=== PATIENT | female | born 1970 | race Two or more races ===

== ENCOUNTER 2025-02-16 05:16 | Emergency (ER) | payer MEDICAID, SELFPAY ==
[2025-02-16 05:24] VITALS: BP 136/87; PULSE 73; RESP 17; TEMP 36.6; O2SAT 95
--- NOTE | 2025-02-16 05:38 | XR_ITS ---
Examination: Abdomen sonogram, Limited Date and time of exam: February 16, 2025, 0548 hours INDICATIONS: Right upper abdominal pain beginning 12:00 AM this morning Technique: Real-time monet scale transabdominal sonographic images of the upper abdomen obtained. Findings: Multiple gallstones Normal gallbladder wall 0.2 cm Common bile duct 0.3 cm Pancreatic head 1.9 cm Liver 19.4 cm fatty infiltration no focal liver lesions Normal hepatopedal portal venous flow Patent IVC IMPRESSION: Cholelithiasis, negative for cholecystitis Moderate hepatomegaly
--- NOTE | 2025-02-16 05:39 | PD.EDRME ---
Rapid Medical Screening Exam [facility] Arrival date/time: 02/16/25 05:16 54F with history of DM presents to ED with 2 days of N/V, upper ab pain, and non-bloody diarrhea. Chief Complaint: Abdominal Pain Vital signs: Vital Signs Temperature 97.8 F 02/16/25 05:24 Pulse Rate 73 02/16/25 05:24 Respiratory Rate 17 02/16/25 05:24 Blood Pressure 136/87 H 02/16/25 05:24 Pulse Oximetry (%) 95 02/16/25 05:24 Oxygen Delivery Method Room Air 02/16/25 05:24
[2025-02-16 06:07] LABS: Collection Type, Urine Clean Catch; RBC,Urine 0 /hpf (0-3); WBC,Urine 0 /hpf (0-5)
[2025-02-16 06:09] VITALS: BMI 32.5
--- NOTE | 2025-02-16 06:24 | PRELIM_ITS ---
Gallbladder ultrasound. February 16, 2025 0548 hours Clinical history: RUQ/epigastric pain Technique: Grayscale and color flow images of the abdomen are provided. Comparison: No prior study is available for comparison. Findings: The liver is enlarged, measuring 19.4 cm, and demonstrates increased echogenicity with a heterogeneous texture. No focal hepatic masses or cysts are identified. No intrahepatic biliary ductal dilatation is demonstrated. The gallbladder contains multiple echogenic foci with posterior acoustic shadowing consistent with calculi. The gallbladder wall measures 0.2 cm, which is within normal limits. No pericholecystic fluid is seen. The common bile duct measures 0.3 cm, which is within normal limits. The pancreas is visualised with a head dimension of 1.9 cm and shows no focal mass. Hepatopetal flow is demonstrated in the portal vein. The IVC is patent. No free fluid is seen. Impression: Cholelithiasis without evidence of acute cholecystitis. Hepatomegaly with heterogeneous and hyperechoic echotexture, suggestive of hepatic parenchymal disease (such as steatosis or other hepatocellular pathology). Recommend correlation with liver function tests and clinical history. Report Electronically Signed By: Trav Major 02/16/2025 6:23:53 AM [EST]
[2025-02-16] MEDS: ONDANSETRON INJ 2 MG/ML INJ 2 ML 4 MG IV (06:28)
[2025-02-16] MEDS: SODIUM CHLORIDE 0.9% 1000 ML 1,000 ML 999 ML IV (06:29)
[2025-02-16] MEDS: MORPHINE SULF INJ 10 MG/ML VIAL 5 MG IVP (06:29)
[2025-02-16 06:31] LABS: Bacteria,Urine Rare; Bilirubin,Urine Negative (Negative); Blood,Urine Negative (Negative); Clarity,Urine Clear (Clear/Hazy); Color,Urine Lt-Yellow (Lt Yel-Yel); Culture Indicated,Urine Not Indicated; Glucose, Urine Negative (Negative); Ketones,Urine Negative (Negative); Leukocyte Esterase,Urine Negative (Negative); Nitrite,Urine Negative (Negative); PH,Urine 6.0 (5.0-7.0); Protein,Urine Negative (Neg - Trace); Specific Gravity,Urine 1.023 (1.001-1.035); Squamous Epithelial Cell,Urine 1 /hpf (0-5); Urobilinogen,Urine Negative mg/dL (0.0-1.0)
[2025-02-16 06:33] LABS: HCG Qualitative,Urine Negative
[2025-02-16 06:39] VITALS: BP 134/88; PULSE 72; RESP 17; TEMP 36.6; O2SAT 95
[2025-02-16 06:47] LABS: Amphetamine/Methamp Scrn,U Negative (Negative); Barbiturate Screen,Urine Negative (Negative); Benzodiazepines Screen,Urine Negative (Negative); Benzoylecgonine Screen, Ur Negative (Negative); Fentanyl Screen,Urine Negative (Negative); Opiate Screen,Urine Negative (Negative); THC Screen,Urine Negative (Negative)
[2025-02-16 07:14] LABS: Basophils # (Auto) 0.0 Thou/mm3 (0.0-0.2); Basophils % (Auto) 0 % (0-2.5); Eosinophils # (Auto) 0.1 Thou/mm3 (0.0-0.5); Eosinophils % (Auto) 0 % (0-10); Hematocrit 40.1 % (36.0-46.0); Hemoglobin 13.6 g/dL (12.0-16.0); Immature Granulocytes Auto 0.07 Thou/mm3 (0.00-0.00); Lymphocytes # (Auto) 1.0 Thou/mm3 (1.0-4.8); Lymphocytes % (Auto) 8 % (10-50); Mean Corpuscular HGB Conc 33.9 g/dl (31.0-37.0); Mean Corpuscular Hemoglobin 30.6 pg (25.0-35.0); Mean Corpuscular Volume 90 fL (80-100); Monocytes # (Auto) 0.6 Thou/mm3 (0.0-0.8); Monocytes % (Auto) 4 % (0-12); Neutrophils # (Auto) 11.7 Thou/mm3 (1.8-7.7); Neutrophils % (Auto) 87 % (37-80); Nucleated Red Blood Cell # 0.00 Thou/mm3 (0.00-0.00); Nucleated Red Blood Cell % 0 /100 WBC (0); Platelet Count 248 Thou/mm3 (140-440); RDW Standard Deviation 45.3 fL (36.4-46.3); Red Blood Count 4.45 Miln/mm3 (4.00-5.20); White Blood Count 13.5 Thou/mm3 (3.6-11.0)
--- NOTE | 2025-02-16 07:14 | PD.EDABDPN ---
ED Abdominal Pain RME/HPI General Chief Complaint: Abdominal Pain Stated complaint: N/V/ABD PAIN/ GARCIA/CHILLS Time seen by provider: 02/16/25 06:27 Arrival date/time: 02/16/25 05:16 Limitations: no limitations RME / HPI RME / HPI narrative: 02/16/25 05:16 54F with history of DM presents to ED with 2 days of N/V, upper ab pain, and non-bloody diarrhea. DR. WILSON MAIN ED EVALUATION: 54-year-old female with past medical history of type 2 diabetes mellitus, hypertension, hypercholesterolemia, gallstones, and prior section presents with two weeks of abdominal pain, headache, nausea, vomiting, and chills. She denies dysuria, cough, congestion, or recent illness. She is accompanied by her daughter. Social history is negative for tobacco, alcohol, or drug use. Related Data Allergies Allergy/AdvReac Type Severity Reaction Status Date / Time NKA* Allergy Uncoded 03/11/12 05:23 Review of Systems Review of Systems Systems Reviewed: All systems reviewed, normal except as documented Past Medical History Past Medical History CARDIAC: Positive Hypercholesterolemia and Hypertension GASTROINTESTINAL: Positive Gall Bladder Disease ENDOCRINE: Positive Diabetes Mellitus Type 2 Social History SMOKING STATUS: Never smoker SUBSTANCE USE: does not use ALCOHOL: Never ED Exam General Limitations: Present no limitations General appearance: Present alert and in distress (looks uncomfortable and acutely ill) Head Head exam: Present atraumatic, normocephalic and normal inspection Eye Eye exam: Present normal appearance, PERRL and EOMI ENT ENT exam: Present normal exam, normal oropharynx and mucous membranes moist Neck Neck exam: Present normal inspection, full ROM and trachea midline Chest Chest inspection: Present normal inspection and symmetric chest wall rise Respiratory Respiratory exam: Present normal lung sounds bilaterally Cardiovascular Cardiovascular exam: Present regular rate, normal rhythm and normal heart sounds Abdominal Exam Abdominal exam: Present normal bowel sounds Abdominal tenderness: Present RUQ and epigastrium Extremities Exam Extremities exam: Present normal inspection and full ROM Back Exam Back exam: Present normal inspection and full ROM Neurological Exam Neurological exam: Present alert, oriented X3 and CN II-XII intact Psychiatric Psychiatric exam: Present normal affect and normal mood Skin Skin exam: Present warm, dry, intact and normal color Course Quality Measures none Orders Category Date Time Status Bedside COVID-19 Antigen Test NOW Care 02/16/25 05:31 Completed Bedside Influenza A&B Antigen Test NOW Care 02/16/25 05:[address] Screening NOW Care 02/16/25 08:25 Completed EKG (ED ONLY) *Do not use* NOW Care 02/16/25 09:08 Completed Insert IV NOW Care 02/16/25 05:[address] abdomen pelvis w con Stat Exams 02/16/25 08:25 Completed EKG (ED Only) Stat Exams 02/16/25 09:08 Draft US gall bladder Stat Exams 02/16/25 05:38 Completed CBC Stat Lab 02/16/25 06:59 Completed CMP [Comprehensive Metabolic Panel] Stat Lab 02/16/25 06:59 Completed Drug Screen,Urine Stat Lab 02/16/25 06:03 Completed HCG Qualitative,Urine Stat Lab 02/16/25 06:03 Completed Lactic Acid [Lactate (Lactic Acid)] Stat Lab 02/16/25 08:37 Completed Lactic Acid, 3 HR Stat Lab 02/16/25 11:57 Completed Lipase Stat Lab 02/16/25 06:59 Completed Troponin I Stat Lab 02/16/25 08:37 Completed Urinalysis, C/S if Indicated Stat Lab 02/16/25 06:03 Completed Ketorolac Inj [Toradol Inj] Med 02/16/25 07:17 Discontinued 15 mg IVP X1 ONE Lidocaine 2% Viscous [Xylocaine 2% Viscous] Med 02/16/25 08:25 Discontinued 15 ml PO X1 ONE Morphine Inj Med 02/16/25 05:38 Discontinued 5 mg IVP X1 ONE Ondansetron Inj [Zofran Inj] Med 02/16/25 05:38 Discontinued 4 mg IV X1 ONE Ringers Lactated 1000 ml [Lactated Ringers] 1,000 ml Med 02/16/25 10:53 Discontinued IV 999 mls/hr Sodium Chloride 0.9% 1000 ml [Ns] 1,000 ml Med 02/16/25 05:38 Discontinued IV 999 mls/hr mg Hyd/Al Hyd/Flex Susp [Maalox Susp] Med 02/16/25 08:25 Discontinued 30 ml PO X1 ONE Vital Signs Vital signs: Vital Signs Temperature 97.8 F 02/16/25 05:24 Pulse Rate 73 02/16/25 05:24 Respiratory Rate 17 02/16/25 05:24 Blood Pressure 136/87 H 02/16/25 05:24 Pulse Oximetry (%) 95 02/16/25 05:24 Oxygen Delivery Method Room Air 02/16/25 05:24 Abdominal Pain MDM MDM Narrative MDM Narrative:: I, Eileen Kaminski am scribing for and in the presence of Dr. Wilson. Patient is a 54-year-old female seen and examined concern for abdominal pain. Vital signs and exam as listed. Ordered labs, right upper quadrant ultrasound as well as pelvic CT as well as EKG. Labs with evidence of leukocytosis, 13.5, left shift of 87%. Patient hemoglobin 13.6, no significant acute electrolyte abnormalities. LFTs normal troponin not elevated. Urinalysis without evidence of infection. Drug screen negative. Right upper quadrant ultrasound with evidence of cholelithiasis, no evidence of cholecystitis. CT with evidence of possible enteritis. Less likely bowel obstruction given patient is having bowel movements Patient data External records reviewed:: [facility] previous records Clinical information provided by:: patient and family Social determinants that could affect healthcare access:: none Patient has the following chronic illnesses:: Past medical history of type 2 diabetes mellitus, hypertension, hypercholesterolemia, gallstones, and prior section. Social history is negative for tobacco, alcohol, or drug use. How is presenting disease/condition affected by chronic disease/condition?: exacerbated by Evaluation data The following diagnostics were reviewed and interpreted by me:: lab results and radiology exam(s) Lab and/or radiology exams considered but not ordered:: none Interpretation Summary: Procedure(s): US gall bladder Accession Number(s): [id number] cc: Jai Ma MD; Solitario Michelle MD; Saqib Garcia PA-C~ Examination: Abdomen sonogram, Limited Date and time of exam: February 16, 2025, 0548 hours INDICATIONS: Right upper abdominal pain beginning 12:00 AM this morning Technique: Real-time monet scale transabdominal sonographic images of the upper abdomen obtained. Findings: Multiple gallstones Normal gallbladder wall 0.2 cm Common bile duct 0.3 cm Pancreatic head 1.9 cm Liver 19.4 cm fatty infiltration no focal liver lesions Normal hepatopedal portal venous flow Patent IVC IMPRESSION: Cholelithiasis, negative for cholecystitis Moderate hepatomegaly Dictated By: Solitario Michelle MD Procedure(s): CT abdomen pelvis w con Accession Number(s): [id number] cc: Jai Ma MD; Solitario Michelle MD; France Wilson MD~ Examination: CT abdomen with intravenous contrast CT pelvis with intravenous contrast 2-D coronal reconstructions 2-D sagittal reconstructions Date and time of exam:February 16, 2025, 1017 hours INDICATIONS: Onset upper abdominal pain beginning this morning.. CTDI: vol (mGy) 9.69 DLP: (mGycm) 512 Technique: Multiple axial sections of the abdomen and pelvis have been obtained. 64 slice high-resolution scanner used. 3 mm axial sections have been obtained, post intravenous injection 60 cc [id number] 2-D sagittal, coronal reconstructions obtained. Low dose protocols were performed. One or more of the following dose reduction techniques were used; automated exposure control, adjustment of the mA and/or KV according to patient size, use of iterative reconstruction technique. Findings: No focal liver or splenic lesions Gallstones No pancreatic or adrenal mass No renal or ureteral calculi, no hydronephrosis Multiple fluid distended small bowel loops Normal appendix No diverticulitis Intact urinary bladder Atrophic uterus Advanced disc narrowing T12-L1 IMPRESSION: Multiple fluid distended small bowel loops, consider ileus, enteritis such as Crohn's disease If early small bowel obstruction is a clinical consideration recommend 3 way abdominal series follow-up Dictated By: Solitario Michelle MD Medications / Prescriptions Medications or Prescriptions considered but not ordered:: none Medication administrations:: Medication Administration History Discontinued Medications Al Hydrox/Mg Hydrox/Simethicone (Mg Hyd/Al Hyd/Flex (Maalox Reg) Susp 30 Ml Udc) 30 ml PO X1 ONE Stop: 02/16/25 08:26 Last Admin: 02/16/25 08:59 Dose: 30 ml Documented By: VICENTE Sodium Chloride (Ns) 1,000 mls @ 999 mls/hr IV .Q1H1M ONE Stop: 02/16/25 06:38 Last Infusion: 02/16/25 07:32 Dose: Infused Documented By: Admin: 02/16/25 06:29 Dose: 999 mls/hr Documented By: SAVANNAH Lactated Ringer's (Lactated Ringers) 1,000 mls @ 999 mls/hr IV .Q1H1M ONE Stop: 02/16/25 11:53 Last Infusion: 02/16/25 12:14 Dose: Infused Documented By: Admin: 02/16/25 11:07 Dose: 999 mls/hr Documented By: VICENTE Ketorolac Tromethamine (Ketorolac Inj 30 Mg/Ml Vial) 15 mg IVP X1 ONE Stop: 02/16/25 07:18 Last Admin: 02/16/25 07:24 Dose: 15 mg Documented By: VICENTE Lidocaine HCl (Lidocaine Viscous 2% 15 Ml Udc) 15 ml PO X1 ONE Stop: 02/16/25 08:26 Last Admin: 02/16/25 08:59 Dose: 15 ml Documented By: VICENTE Morphine Sulfate (Morphine Sulf Inj 10 Mg/Ml Vial) 5 mg IVP X1 ONE Stop: 02/16/25 05:39 Last Admin: 02/16/25 06:29 Dose: 5 mg Documented By: SAVANNAH Ondansetron HCl (Ondansetron Inj 2 Mg/Ml Inj 2 Ml) 4 mg IV X1 ONE; Protocol Stop: 02/16/25 05:39 Last Admin: 02/16/25 06:28 Dose: 4 mg Documented By: SAVANNAH see above Consultations Consultation(s) initiated? (list below): No Diagnosis Differential diagnosis abdominal pain: abdominal pain and other (Cholecystitis, viral gastroenteritis, and diabetic gastroparesis.) Most likely diagnosis given after review of the tests above:: Diarrhea Cholelithiasis Admission Indicated Admission indicated?: not indicated Admission Request Was there a request for admission?: No Disposition Plan Disposition Plan: Discharge Discharge Attestation Discharge Attestation: The patient and all family members were given an opportunity to ask questions and understood the discharge instructions. Discharge instructions specifically effects, indications for sooner follow up or return to the emergency department, and the expected course of current diagnosis. Patient condition: Stable Critical Care Time Critical Care Time Critical Care Time: Yes Total Critical Care Time (min.): 40 Attestation: The high probability of sudden, clinically significant deterioration in the patient?s condition required the highest level of my preparedness to intervene urgently. The services I provided to this patient were to treat and/or prevent clinically significant deterioration. Services included the following: chart data review, reviewing nursing notes and/or old charts, documentation time, ada accommodation consultant collaboration regarding findings and treatment options, medication orders and management, direct patient care, vital sign assessments and ordering, interpreting and reviewing diagnostic studies and lab tests. Aggregate critical care time includes only time during which I was engaged in work directly related to the patient?s care, as described above, whether at bedside or elsewhere in the Emergency Department. It did not include time spent performing other reported procedures or the services of residents, students, nurses or physician assistants. Discharge Plan Plan Patient Disposition: HOME (Self Care) Prescriptions/Referrals Referrals: Jai Ma MD [Primary Care Provider] - In 1 week Problem List Clinical Impression: Diarrhea, Cholelithiasis Patient/Caregiver Discharge Instructions Education Materials: ED Diarrhea, Unknown Cause, ED Gallstones with Biliary Colic Additional Instructions: Por favor pedir mona con un cirujano para la evaluacion y manejo de patrizia piedras en la vesicula. Por favor hidratarse jomar en casa. Regresar de inmediato si tiene empeoramiento de sintomas o nuevos sintomas de preocupacion Print Language: Citizen Of [place] Stand Alone Forms: Marielle Award Info., Patient Portal Info Letter
--- NOTE | 2025-02-16 07:14 | PD.EDABDPN ---
ED Abdominal Pain RME/HPI General Chief Complaint: Abdominal Pain Stated complaint: N/V/ABD PAIN/ GARCIA/CHILLS Time seen by provider: 02/16/25 06:27 Arrival date/time: 02/16/25 05:16 Source: patient Limitations: no limitations and language barrier (Use certified certified court/medical interpreter) RME / HPI RME / HPI narrative: 02/16/25 05:16 54F with history of DM presents to ED with 2 days of N/V, upper ab pain, and non-bloody diarrhea. Denies fevers however does endorse chills. Denies drugs alcohol smoking recent travel sick contacts or any dietary changes. Nobody also sick at home. Patient has a history of 2 C-sections, no other surgeries to her belly. No allergies to medications Related Data Allergies Allergy/AdvReac Type Severity Reaction Status Date / Time NKA* Allergy Uncoded 03/11/12 05:23 ED Exam General Limitations: Present no limitations and language barrier (Use certified certified court/medical interpreter) General appearance: Present alert Head Head exam: Present atraumatic Eye Eye exam: Present normal appearance ENT ENT exam: Present normal exam Neck Neck exam: Present normal inspection Chest Chest inspection: Present normal inspection Respiratory Respiratory exam: Present normal lung sounds bilaterally Cardiovascular Cardiovascular exam: Present normal rhythm Abdominal Exam Abdominal exam: Present soft and tenderness (Tenderness palpation in the right upper quadrant, no rebound or guarding); Absent distention Neurological Exam Neurological exam: Present alert and oriented X3 Psychiatric Psychiatric exam: Present normal affect Skin Skin exam: Present warm and dry Course Quality Measures none Orders Category Date Time Status Bedside COVID-19 Antigen Test NOW Care 02/16/25 05:31 Active Bedside Influenza A&B Antigen Test NOW Care 02/16/25 05:[address] Screening NOW Care 02/16/25 08:25 Active EKG (ED ONLY) *Do not use* NOW Care 02/16/25 09:08 Completed Insert IV NOW Care 02/16/25 05:[address] abdomen pelvis w con Stat Exams 02/16/25 08:25 Completed EKG (ED Only) Stat Exams 02/16/25 09:08 Draft US gall bladder Stat Exams 02/16/25 05:38 Completed CBC Stat Lab 02/16/25 06:59 Completed CMP [Comprehensive Metabolic Panel] Stat Lab 02/16/25 06:59 Completed Drug Screen,Urine Stat Lab 02/16/25 06:03 Completed HCG Qualitative,Urine Stat Lab 02/16/25 06:03 Completed Lactic Acid [Lactate (Lactic Acid)] Stat Lab 02/16/25 08:37 Completed Lactic Acid, 3 HR Stat Lab 02/16/25 11:57 Completed Lipase Stat Lab 02/16/25 06:59 Completed Troponin I Stat Lab 02/16/25 08:37 Completed Urinalysis, C/S if Indicated Stat Lab 02/16/25 06:03 Completed Ketorolac Inj [Toradol Inj] Med 02/16/25 07:17 Discontinued 15 mg IVP X1 ONE Lidocaine 2% Viscous [Xylocaine 2% Viscous] Med 02/16/25 08:25 Discontinued 15 ml PO X1 ONE Morphine Inj Med 02/16/25 05:38 Discontinued 5 mg IVP X1 ONE Ondansetron Inj [Zofran Inj] Med 02/16/25 05:38 Discontinued 4 mg IV X1 ONE Ringers Lactated 1000 ml [Lactated Ringers] 1,000 ml Med 02/16/25 10:53 Discontinued IV 999 mls/hr Sodium Chloride 0.9% 1000 ml [Ns] 1,000 ml Med 02/16/25 05:38 Discontinued IV 999 mls/hr mg Hyd/Al Hyd/Flex Susp [Maalox Susp] Med 02/16/25 08:25 Discontinued 30 ml PO X1 ONE Vital Signs Vital signs: Vital Signs Temperature 97.8 F 02/16/25 05:24 Pulse Rate 73 02/16/25 05:24 Respiratory Rate 17 02/16/25 05:24 Blood Pressure 136/87 H 02/16/25 05:24 Pulse Oximetry (%) 95 02/16/25 05:24 Oxygen Delivery Method Room Air 02/16/25 05:24 Abdominal Pain MDM MDM Narrative MDM Narrative:: Patient is a 54-year-old female is in Emergency Department concerns for epigastric pain. Vital signs and exam as listed. Concern for cholelithiasis cholecystitis pancreatitis among others. Ordered labs, right upper quadrant ultrasound medications for symptom relief. Patient did not present septic. Labs with evidence of leukocytosis 13.5, left shift of 87%. No significant electrolyte abnormalities, no transaminitis urinalysis without evidence of infection drug screen negative right upper quadrant ultrasound with evidence of multiple gallstones, normal gallbladder wall, normal common bile duct, patient does have fatty liver, otherwise no other abnormalities. On reevaluation patient hemodynamically stable, not in distress however is concerned because her abdominal pain only mildly gets better and then she gets nauseous again. Given this ordered lactic acid, CT abdomen and pelvis as well as a GI cocktail. Initial lactic acid slightly elevated 2.6, down trended to normal following fluid resuscitation. EKG without evidence of ischemia arrhythmia troponin not elevated. CT abdomen pelvis with multiple fluid distended small bowel loops, given patient's clinical history findings are most consistent with enteritis. Patient is having bowel movements. Nonbloody. On reassessment, patient symptoms have completely resolved she is feeling better, abdomen soft nondistended nontender, will discharge to home with close return precautions follow-up with her primary care doctor as well as recommendation that she sees a general surgeon for management of her gallstone pain. Patient states that she has had symptoms on and off for years, had not had recurrence of symptoms for many years. Patient in agreement with treatment plan will follow-up with her primary care doctor as an outpatient. Patient data External records reviewed:: [facility] previous records Clinical information provided by:: patient Social determinants that could affect healthcare access:: none (Language, certified certified court/medical interpreter used) Patient has the following chronic illnesses:: Diabetes How is presenting disease/condition affected by chronic disease/condition?: uneffected by Evaluation data The following diagnostics were reviewed and interpreted by me:: lab results, radiology exam(s) and EKG tracing(s) Lab and/or radiology exams considered but not ordered:: None Interpretation Summary: See MDM Medications / Prescriptions Medications or Prescriptions considered but not ordered:: None Medication administrations:: Medication Administration History Discontinued Medications Al Hydrox/Mg Hydrox/Simethicone (Mg Hyd/Al Hyd/Flex (Maalox Reg) Susp 30 Ml Udc) 30 ml PO X1 ONE Stop: 02/16/25 08:26 Last Admin: 02/16/25 08:59 Dose: 30 ml Documented By: VICENTE Sodium Chloride (Ns) 1,000 mls @ 999 mls/hr IV .Q1H1M ONE Stop: 02/16/25 06:38 Last Infusion: 02/16/25 07:32 Dose: Infused Documented By: Admin: 02/16/25 06:29 Dose: 999 mls/hr Documented By: SAVANNAH Lactated Ringer's (Lactated Ringers) 1,000 mls @ 999 mls/hr IV .Q1H1M ONE Stop: 02/16/25 11:53 Last Infusion: 02/16/25 12:14 Dose: Infused Documented By: Admin: 02/16/25 11:07 Dose: 999 mls/hr Documented By: VICENTE Ketorolac Tromethamine (Ketorolac Inj 30 Mg/Ml Vial) 15 mg IVP X1 ONE Stop: 02/16/25 07:18 Last Admin: 02/16/25 07:24 Dose: 15 mg Documented By: VL Lidocaine HCl (Lidocaine Viscous 2% 15 Ml Udc) 15 ml PO X1 ONE Stop: 02/16/25 08:26 Last Admin: 02/16/25 08:59 Dose: 15 ml Documented By: VICENTE Morphine Sulfate (Morphine Sulf Inj 10 Mg/Ml Vial) 5 mg IVP X1 ONE Stop: 02/16/25 05:39 Last Admin: 02/16/25 06:29 Dose: 5 mg Documented By: SAVANNAH Ondansetron HCl (Ondansetron Inj 2 Mg/Ml Inj 2 Ml) 4 mg IV X1 ONE; Protocol Stop: 02/16/25 05:39 Last Admin: 02/16/25 06:28 Dose: 4 mg Documented By: SAVANNAH See above Consultations Consultation(s) initiated? (list below): No Diagnosis Differential diagnosis abdominal pain: abdominal pain, constipation, diverticulitis and gastroenteritis Most likely diagnosis given after review of the tests above:: symptomatic cholelithiasis, diarrhea Admission Indicated Admission indicated?: not indicated Admission Request Was there a request for admission?: No Disposition Plan Disposition Plan: Discharge Discharge Attestation Discharge Attestation: The patient and all family members were given an opportunity to ask questions and understood the discharge instructions. Discharge instructions specifically effects, indications for sooner follow up or return to the emergency department, and the expected course of current diagnosis. Patient condition: Stable Discharge Plan Plan Patient Disposition: HOME (Self Care) Prescriptions/Referrals Referrals: Jai Ma MD [Primary Care Provider] - In 1 week Problem List Clinical Impression: Diarrhea, Cholelithiasis Patient/Caregiver Discharge Instructions Education Materials: ED Diarrhea, Unknown Cause, ED Gallstones with Biliary Colic Additional Instructions: Por favor pedir mona con un cirujano para la evaluacion y manejo de patrizia piedras en la vesicula. Por favor hidratarse jomar en casa. Regresar de inmediato si tiene empeoramiento de sintomas o nuevos sintomas de preocupacion Print Language: [place] Stand Alone Forms: Marielle Award Info., Patient Portal Info Letter
[2025-02-16 07:16] VITALS: BP 144/89; PULSE 73; RESP 18; TEMP 36.8; O2SAT 99
[2025-02-16] MEDS: KETOROLAC INJ 30 MG/ML VIAL 15 MG IVP (07:24)
[2025-02-16 07:31] LABS: Alanine Aminotransferase 23 U/L (10-49); Albumin, Serum 4.6 gm/dL (3.5-5.0); Albumin/Globulin Ratio 1.8 (1.2-2.2); Alkaline Phosphatase 102 U/L (46-116); Anion Gap 9 (7-16); Aspartate Amino Transferase 19 U/L (0-34); BUN/Creatinine Ratio 26 Ratio (12-20); Bilirubin,Total 0.7 mg/dL (0.3-1.2); Blood Urea Nitrogen 21 mg/dL (9-23); Calcium 9.0 mg/dL (8.3-10.6); Calcium (Corrected) 9.0 mg/dL (8.5-10.1); Carbon Dioxide 29.7 mMol/L (20.0-31.0); Chloride 105 mMol/L (98-107); Creatinine (Component) 0.8 mg/dL (0.6-1.3); Estimated Creatinine Clearance 80.1 mL/min (>60); Globulin 2.6 gm/dL (2.3-3.5); Glucose 133 mg/dL (74-106); Lipase 35 U/L (12-53); Osmolality,Calculated 291 (275-295); Potassium 3.8 mMol/L (3.4-5.1); Sodium 144 mMol/L (136-145); Total Protein 7.2 gm/dL (5.7-8.2); eGFR > 60 See Note
--- NOTE | 2025-02-16 08:25 | XR_ITS ---
Examination: CT abdomen with intravenous contrast CT pelvis with intravenous contrast 2-D coronal reconstructions 2-D sagittal reconstructions Date and time of exam:February 16, 2025, 1017 hours INDICATIONS: Onset upper abdominal pain beginning this morning.. CTDI: vol (mGy) 9.69 DLP: (mGycm) 512 Technique: Multiple axial sections of the abdomen and pelvis have been obtained. 64 slice high-resolution scanner used. 3 mm axial sections have been obtained, post intravenous injection 60 cc [id number] 2-D sagittal, coronal reconstructions obtained. Low dose protocols were performed. One or more of the following dose reduction techniques were used; automated exposure control, adjustment of the mA and/or KV according to patient size, use of iterative reconstruction technique. Findings: No focal liver or splenic lesions Gallstones No pancreatic or adrenal mass No renal or ureteral calculi, no hydronephrosis Multiple fluid distended small bowel loops Normal appendix No diverticulitis Intact urinary bladder Atrophic uterus Advanced disc narrowing T12-L1 IMPRESSION: Multiple fluid distended small bowel loops, consider ileus, enteritis such as Crohn's disease If early small bowel obstruction is a clinical consideration recommend 3 way abdominal series follow-up
[2025-02-16 08:41] LABS: Lactate (Lactic Acid) 2.6 mMol/L (0.4-2.0)
[2025-02-16] MEDS: LIDOCAINE VISCOUS 2% 15 ML UDC PO (08:59)
[2025-02-16] MEDS: MG HYD/AL HYD/SIME (Maalox Reg) SUSP 30 ML UDC PO (08:59)
[2025-02-16 09:00] VITALS: BP 112/82; PULSE 78; RESP 19; O2SAT 96
--- NOTE | 2025-02-16 09:08 | EKG_ITS ---
[facility] Test Date: 2025-02-16 Pat Name: LENORE SHOOK Department: Room: - Gender: Female Manager [employer]: : 1970 Requested By: [place] Ge Order Number: [id number] Reading MD: [place] Ge Measurements Intervals [place] Rate: 69 P: 43 NE: 114 QRS: 24 QRSD: 94 T: -4 QT: 424 QTc: 456 Interpretive Statements SINUS RHYTHM WITH SHORT NE INTERVAL ST DEVIATION AND MODERATE T-WAVE ABNORMALITY, CONSIDER ANTEROLATERAL ISCHEMIA [-0.1+ mV T-WAVE IN V3-V6] No previous ECG available for comparison /[id number].pdf
[2025-02-16 10:18] LABS: Troponin I < 0.002 ng/mL (0.0-0.045)
[2025-02-16] MEDS: RINGERS LACTATED 1000 ML 1,000 ML 999 ML IV (11:07)
[2025-02-16 11:11] VITALS: BP 106/65; PULSE 73; RESP 19; TEMP 37.9; O2SAT 95
[2025-02-16 11:40] LABS: Reflex Lactate? Y
[2025-02-16 12:09] LABS: Lactic Acid, 3 HR 1.5 mMol/L (0.4-2.0)
[2025-02-16 12:14] VITALS: BP 115/73; PULSE 74; RESP 18; TEMP 37.7; O2SAT 98
== END 2025-02-16 13:12 | disposition home or self-care (01) ==
PROVIDERS: Physician Assistant; Emergency Provider Emergency Medicine; PCP Family Medicine
DX: K80.20 Calculus of gallbladder without cholecystitis without obstruction (principal); E11.9 Type 2 diabetes mellitus without complications; R19.7 Diarrhea, unspecified; Z75.8 Other problems related to medical facilities and other health care
CPT/HCPCS: 36415; 74177; 76705; 80053; 80307; 81001; 81025; 83605; 83690; 84484; 85025; 87400; 87811; 93005; 99283; A4649; J1885; J2270; J2405; J3490; J7030; J7120; Q9967; A9270

== ENCOUNTER 2025-05-11 09:00 | Day surgery (SDC) | payer MEDICAID, SELFPAY ==
--- NOTE | 2025-05-08 12:25 | EKG_ITS ---
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
[2025-05-08 12:31] VITALS: BMI 33.3
[2025-05-08 13:23] LABS: Basophils # (Auto) 0.1 Thou/mm3 (0.0-0.2); Basophils % (Auto) 1 % (0-2.5); Eosinophils # (Auto) 0.2 Thou/mm3 (0.0-0.5); Eosinophils % (Auto) 3 % (0-10); Hematocrit 37.2 % (36.0-46.0); Hemoglobin 12.4 g/dL (12.0-16.0); Immature Granulocytes Auto 0.01 Thou/mm3 (0.00-0.00); Lymphocytes # (Auto) 1.6 Thou/mm3 (1.0-4.8); Lymphocytes % (Auto) 31 % (10-50); Mean Corpuscular HGB Conc 33.3 g/dl (31.0-37.0); Mean Corpuscular Hemoglobin 29.3 pg (25.0-35.0); Mean Corpuscular Volume 88 fL (80-100); Monocytes # (Auto) 0.4 Thou/mm3 (0.0-0.8); Monocytes % (Auto) 7 % (0-12); Neutrophils # (Auto) 3.0 Thou/mm3 (1.8-7.7); Neutrophils % (Auto) 58 % (37-80); Nucleated Red Blood Cell # 0.00 Thou/mm3 (0.00-0.00); Nucleated Red Blood Cell % 0 /100 WBC (0); Platelet Count 235 Thou/mm3 (140-440); RDW Standard Deviation 46.3 fL (36.4-46.3); Red Blood Count 4.23 Miln/mm3 (4.00-5.20); White Blood Count 5.2 Thou/mm3 (3.6-11.0)
[2025-05-08 13:38] LABS: INR 1.0 (0.9-1.3); Partial Thromboplastin Time 27.9 Seconds (22.0-36.0); Prothrombin Time 10.3 Seconds (9.0-12.2)
[2025-05-08 13:46] LABS: Alanine Aminotransferase 23 U/L (10-49); Albumin, Serum 4.4 gm/dL (3.5-5.0); Albumin/Globulin Ratio 1.8 (1.2-2.2); Alkaline Phosphatase 103 U/L (46-116); Anion Gap 8 (7-16); Aspartate Amino Transferase 23 U/L (0-34); BUN/Creatinine Ratio 36 Ratio (12-20); Bilirubin,Total 0.4 mg/dL (0.3-1.2); Blood Urea Nitrogen 18 mg/dL (9-23); Calcium 9.0 mg/dL (8.3-10.6); Calcium (Corrected) 9.0 mg/dL (8.5-10.1); Carbon Dioxide 32.2 mMol/L (20.0-31.0); Chloride 103 mMol/L (98-107); Creatinine (Component) 0.5 mg/dL (0.6-1.3); Estimated Creatinine Clearance 119.7 mL/min (>60); Globulin 2.4 gm/dL (2.3-3.5); Glucose 96 mg/dL (74-106); Osmolality,Calculated 286 (275-295); Potassium 3.9 mMol/L (3.4-5.1); Sodium 143 mMol/L (136-145); Total Protein 6.8 gm/dL (5.7-8.2); eGFR > 60 See Note
[2025-05-11] VITALS (10 sets, daily range): BP systolic 100–131; BP diastolic 61–80; PULSE 61–84; RESP 12–19; TEMP 36.2–36.4; O2SAT 97–100; BMI 33.5
--- NOTE | 2025-05-11 14:05 | SUR.PHASEI ---
1403 Patient arrived to recovery resting comfortably in [facility], on oxygen 4L via oxy mask, breathing unlabored, vital signs stable, denies pain and nausea, dressing intact to abdomen; dissolvable sutures, gauze, medipore tape, no bleeding noted, report received from Dr. Peña and Uzma HENRY
--- NOTE | 2025-05-11 14:23 | ESOP_ITS ---
Date of Procedure 05/11/25 Pre Op Diagnosis Symptomatic cholelithiasis Post Op Diagnosis Acute on chronic cholecystitis with cholelithiasis and hydrops of the gallbladder Procedure Laparoscopic cholecystectomy Findings Patient is found to have cystic duct obstruction resulting in hydrops of the gallbladder with thickening of the gallbladder wall. Procedure Description After endotracheal anesthesia was given the patient was placed in supine position and the abdomen was prepped with chloroprep solution and draped in a sterile manner. After time out was performed I injected a few cc of of half percent Marcaine with epinephrine below the umbilicus and I made an incision for about 3 cm in length. The fascia was cleaned and Veress needle was inserted to create a pneumoperitoneum up to 15 mmHg. Then introduced a 12 mm trocar and a 10 mm camera through the fascia and I inspected the intra-abdominal organs as well as the gallbladder and the liver. Another 5 mm trocar was inserted in the epigastric region under direct vision after injecting some local anesthesia. At this time the patient was kept in reverse Trendelenburg position with the left lateral tilt. The third 5 mm trocar was inserted over the mid axillary line under direct vision and a Darinel and Getruamn grasper was used to hold the fundus of the gallbladder. The retraction was carried out by the speech and language assistant moving the fundus of the gallbladder towards the right shoulder of the patient to create enough traction. I placed a another 5 mm trocar in the midaxillary line just lateral to the rectus muscle under direct vision. I used a fenestrated grasper to retract the neck of the gallbladder laterally towards the patient's right hip. The Calot's triangle was exposed and I achieved the critical view of safety as follows: I dissected out the fatty tissue from the hepatocystic triangle and cleared this area. I also dissected inferior and posterior to the gallbladder to identify the cystic duct and the gallbladder wall. Then superiorly I dissected along the cystic plate up to lower one third third of the gallbladder to lift the gallbladder from the liver. At this time I confirmed that only 2 structures entering the gallbladder were cystic artery and the cystic duct. The common duct was seen distally but no dissection was carried out around the duct. I did not see any need for operative cholangiogram in this patient. The cystic duct was clipped doubly and then divided and cystic artery was similarly dealt with. Then the gallbladder was removed from the liver bed using Harmonic quin to control the small blood vessels as the dissection proceeded. Then the gallbladder was from the liver bed completely and delivered through the umbilical port using an Endopouch. The liver bed was coagulated with cautery to obtain satisfactory hemostasis. The trocars were pulled out from the abdominal cavity and the fascia at the umbilical incision was closed with interrupted 0 Ethibond. Subcutaneous tissues was closed with 3- 0 chromic and injected a few cc of half percent Marcaine with epinephrine and the skin was closed with interrupted 4-0 nylon stitches at all the trocar sites. Dressing was applied with 2 x 2 and Tegaderm. Patient tolerated the procedure well and returned to recovery room in stable condition. Anesthesia GETA Pathology / specimen Other (Gallbladder and the stones) IVF Infused 1,000 Estimated Blood Loss 50 Surgeon Eneida Antonio MD Surgical Staff Operation Date: 05/11/25 11:30 Case Staff Anesthesiologist: Trav Peña RNsolar manufacturer's representative: Anuel De Santiago
--- NOTE | 2025-05-11 15:45 | SUR.PHASEII ---
pt awake and alert, breathing unlabored on room air. v/s stable. pt dressing to abd x4 cdi. pt able to ambulate to wheelchair with steady gait. d/c instructions given with sister [place] in room using park interpreter Ramon anderson, all questions answered. pt d/c via wheelchair with all belongings.
== END 2025-05-11 15:45 | disposition home or self-care (01) ==
PROVIDERS: PCP Family Medicine; Referring Provider Surgery; Visit Provider Surgery
PROC: 0FT44ZZ Resection of Gallbladder, Percutaneous Endoscopic Approach (ICD-10-PCS; CPT 47562; principal; 2025-05-11 11:15)
DX: K80.13 Calculus of gallbladder with acute and chronic cholecystitis with obstruction (principal); K82.1 Hydrops of gallbladder; Z01.810 Encounter for preprocedural cardiovascular examination; E11.9 Type 2 diabetes mellitus without complications; I10 Essential (primary) hypertension; Z79.84 Long term (current) use of oral hypoglycemic drugs; Z79.899 Other long term (current) drug therapy
CPT/HCPCS: 47562; 36415; 80053; 85025; 85610; 85730; 93005; A4217; A4649; J0131; J1100; J2405; J2704; J2710; J3010; J3490; J1596